=== PATIENT | male | born 1995 | race Caucasian/White ===

== ENCOUNTER 2018-05-23 21:07 | Emergency (ER) | payer BC ==
[2018-05-23] MEDS: LIDOCAINE WITH 8.4% SOD BICARB 3 ML DISP.SYRIN. INJ (22:07)
[2018-05-23] MEDS: DIPHTH,PERTUSS(ACELL),TET TOX 0.5 ML DISP.SYRIN. VAX IM (22:08)
== END 2018-05-23 23:07 | disposition home or self-care (01) ==
LOC: ER 23:07
DX: S01.511A Laceration without foreign body of lip, initial encounter (principal); X18.XXXA Contact with other hot metals, initial encounter; Y93.89 Activity, other specified; Y92.89 Other specified places as the place of occurrence of the external cause; Y99.8 Other external cause status
CPT/HCPCS: 12011; 90471; 90715; 99283